=== PATIENT | female | born 1975 | race Caucasian/White ===

== ENCOUNTER → 2016-12-12 | Outpatient (CLI) | payer OTHER ==
[~2016-12-12] MED LIST: DOCUSATE SODIU250 MG PO; JENCYCLA0.35 MG PO; MEDI-MECLIZINE25 MG PO; NEURONTIN 100100 MG PO; OXYBUTYNIN CHLO10 MG PO; PERCOCET 7.5-31 EACH PO; PRINIVIL5 MG PO; PROTONIX40 MG PO; VITAMIN D350000 UNIT PO; VOLTAREN-XR100 MG PO; ZOFRAN 4 MG TAB4 MG PO
== END ==
LOC: CT 07:50
DX: R59.0 Localized enlarged lymph nodes (principal)
CPT/HCPCS: 70491; J7050; Q9962

== ENCOUNTER → 2016-12-25 | Outpatient (CLI) | payer OTHER | LOC: KOH-I 14:11 | DX: M84.474D Pathological fracture, right foot, subsequent encounter for fracture with routine healing (principal); Z96.89 Presence of other specified functional implants | CPT/HCPCS: 73700 ==

== ENCOUNTER → 2020-10-12 | Day surgery (SDC) | payer OTHER ==
[~2020-10-12] MED LIST changes: +ASPIRIN325 MG PO; +BUSPAR 10MG10 MG PO; +CLINDAMYCIN HC300 MG PO; +DETROL1 MG PO; +DICLOFENAC GEL TOP; +DICLOFENAC SOD100 MG PO; +ESCITALOPRAM OX20 MG PO; +FLUTICASONE SPRAY; +HYDROCORTISONE CREAM TOP; +HYDROXYZINE HCL25 MG PO; +IBU800 MG PO; +IPRAT-ALBUT 0.5-3 ML INH; +LAMICTAL XR100 MG PO; +LAMOTRIGINE100 MG PO; +LISINOPRIL10 MG PO; +LORTAB 5-325 M1 EACH PO; +MONTELUKAST SOD10 MG PO; +MUCINEX D ER 61 EACH PO; +NORCO 10-325 T1 EACH PO; +PERCOCET 5-3251 EACH PO; -PRINIVIL5 MG PO; +SINUS RINSE ST1 EACH; +TOPIRAMATE50 MG PO; +VITAMIN B12 PO; +VITAMIN B12-FO1 EACH PO; +VITAMIN C500 M4 PO; +VITAMIN D PO; +XYZAL5 MG PO
[2020-10-13 16:11] LABS: ENDOMYSIAL ANTIBODY IGA Negative (Negative); IMMUNOGLOBULIN A, QN, SERUM 197 mg/dL (87-352); T-TRANSGLUTAMINASE (TTG) IGA <2 U/mL (0-3); T-TRANSGLUTAMINASE (TTG) IGG <2 U/mL (0-5)
== END | disposition home or self-care (01) ==
LOC: OR 06:57
PROVIDERS: Internal Medicine Gastroenterology
PROC: 0DB68ZX Excision of Stomach, Via Natural or Artificial Opening Endoscopic, Diagnostic (ICD-10-PCS; 2020-10-12)
PROC: 0DBH8ZX Excision of Cecum, Via Natural or Artificial Opening Endoscopic, Diagnostic (ICD-10-PCS; 2020-10-12)
PROC: 0DBP8ZX Excision of Rectum, Via Natural or Artificial Opening Endoscopic, Diagnostic (ICD-10-PCS; 2020-10-12)
PROC: 0DBB8ZX Excision of Ileum, Via Natural or Artificial Opening Endoscopic, Diagnostic (ICD-10-PCS; 2020-10-12)
PROC: 0DB38ZX Excision of Lower Esophagus, Via Natural or Artificial Opening Endoscopic, Diagnostic (ICD-10-PCS; principal; 2020-10-12 09:20)
PROC: 0DB78ZX Excision of Stomach, Pylorus, Via Natural or Artificial Opening Endoscopic, Diagnostic (ICD-10-PCS; 2020-10-12 09:20)
DX: K22.8 Other specified diseases of esophagus (principal); K31.9 Disease of stomach and duodenum, unspecified; K64.0 First degree hemorrhoids; K64.4 Residual hemorrhoidal skin tags; K21.9 Gastro-esophageal reflux disease without esophagitis; F17.200 Nicotine dependence, unspecified, uncomplicated; I10 Essential (primary) hypertension; E78.00 Pure hypercholesterolemia, unspecified; G40.909 Epilepsy, unspecified, not intractable, without status epilepticus; M19.90 Unspecified osteoarthritis, unspecified site; E66.01 Morbid (severe) obesity due to excess calories; Z68.38 Body mass index [BMI] 38.0-38.9, adult; Z79.899 Other long term (current) drug therapy; Z79.1 Long term (current) use of non-steroidal anti-inflammatories (NSAID); Z88.0 Allergy status to penicillin
CPT/HCPCS: 36415; 82784; J2704; J7040